=== PATIENT | male | born 1970 | race Caucasian/White ===

== ENCOUNTER 2022-04-05 09:04 | Outpatient (CLI) | payer OTHER ==
[2022-04-05 10:02] VITALS: BP 122/74
--- NOTE | 2022-04-05 10:02 | SLEEP CARE CONSULTATION ---
Information from patient questionnaire entered by Eduar Stover MA. I have reviewed and concur with the information entered by Eduar Stover MA. This document represents the service I personally performed and the decisions made by , Casie Salcido ARNP. History of Present Illness Service Date and Time: 04/05/2022 0904 Reason for Visit: New patient (ONSET 10/22/2001,) Chief Complaint: reports: Unrefreshed sleep, Snoring, Observed pauses in breathing, Fatigue, Frequent awakenings at night Date of Onset: YEARS Usual bedtime: VARIES FOR WORK 10 PM TO MIDNIGHT Time it takes to fall asleep: VARIES 30 MIN TO 1-2 HOURS Snores at night: Yes Observed to quit breathing while asleep: Yes Sleeps alone due to snoring: No Number of times waking at night: 1-2 Reasons for waking at night: reports: Snoring, Pain, Bathroom. denies: Choking, Gasping for air Toss, Turn, or Twitch while sleeping: No Recalls having dreams: Yes Usually gets out of bed at: 0500 Feels refreshed in the morning: No (sometimes) Morning headache: Yes (rarely) Sleepy or fatigued during the day: No Ever fallen asleep while driving: No Takes day naps: No Dreams during day naps: No Prior sleep studies: No Additional HPI information: I had the pleasure of seeing Anival Dixon today regarding the possibility of him having a sleep disorder. His current complaints are fatigue, frequent night awakenings, observed pauses in breathing, snoring and unrefreshed sleep. He states he is retiring from the [employer] after 35 years. He has never had a sleep study and is just getting it checked out. His has told him he snores with some pauses in breathing. There are snorers in his family. He states he has recently had difficulty falling asleep, taking up to 1 or more hours to go to sleep which he feels may be due to his worries about retiring process and change in lifestyle. 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 Patient is and lives in . Have you smoked in the past 12 months: No Alcohol use: Yes Alcohol amount and frequency: 4 X WEEKLY Caffeine use: Yes Caffeine amount and frequency: 2 X DAILY Family History Family history of sleep disordered breathing: Yes Family Hx Sleep Apnea: Father: Snoring, Sleep apnea - Untreated, Grandparent: Snoring, Sleep apnea - Untreated Allergies and Home Medications Known drug allergies: No Drug allergies reviewed: Yes (NKDA) Home medication list reviewed: Yes (no daily medications) Review of Systems Cardiovascular: denies: high blood pressure Gastrointestinal: reports: heartburn (occasional) Neurological: denies: head trauma Ear/Nose/Throat: reports: nasal congestion, sinus problems, wisdom teeth removed. denies: injury to nose, tonsillectomy Musculoskeletal: reports: joint pain, neck pain, back pain Immunologic: reports: sneezing (slight) Physical Exam Vital signs obtained and entered by: Saira STOVER CMA AAVT Blood Pressure: 122/74 (RESP 18, PULSE 83, RIGHT,) Heart Rate: 70 O2 Saturation: 98 (PAPER MASK) Height: 6 ft 4 in Weight: 250 lb Body Mass Index: 30.4 BMI Classification: Obese Neck circumference: 15.5 (INCHES) Mouth and throat: narrow oropharynx Soft palate: long Hard palate: arched Uvula: normal Uvula visualization: 25% Mallampati Class III Tongue: enlarged in size with teeth garcia on lateral edges Tonsils: small Neck: normal w/o lymphadenopathy or thyromegaly Heart: regular rate and rhythm Lungs: clear bilaterally Impression and Plan 1. Suspected Obstructive Sleep Apnea-Hypopnea Syndrome, as suggested by a history of loud and irregular snoring, observed cessation of breath while asleep, gasping or choking in sleep, frequent awakening during the night and unrefreshed sleep. Narrow oropharynx and obesity are common predisposing factors for obstructive sleep apnea-hypopnea syndrome. I recommend proceeding to polysomnography to confirm the diagnosis and to assess severity. If the patient has significant sleep disordered breathing, a manual CPAP titration study will also be performed to find the optimal treatment pressure. I informed the patient of what the sleep studies involve and after some discussion, obtained agreement to proceed. The pathophysiology of obstructive sleep apnea-hypopnea syndrome was discussed with the patient and health risks of cardiovascular and cerebr ovascular disease if not treated. Risks of drowsy driving discussed in detail and patient advised to avoid long distance driving and to shoe puller at the first sign of drowsiness. Patient agreed to plan. * Schedule polysomnography * Avoid long distance driving or driving when feeling sleepy. * Avoid alcohol, sedative and muscle relaxant around bedtime. * Attempt to lose weight. * Review instructions provided by trained office staff on how to prepare for the sleep study. * Return for follow-up after sleep study completed. Counseling Topics: Weight loss health impact Visit Type: In Office Time Spent with Patient (minutes): 37 Provider Statement: I spent 100% of the Face to Face Visit with the patient with greater than 50% spent counseling the patient and coordination of care.
== END 2022-04-05 09:05 | disposition home or self-care (01) ==
LOC: SC 09:04
PROVIDERS: ATTEND Nurse Practitioner Family
DX: R06.83 Snoring (principal); G47.8 Other sleep disorders; R06.81 Apnea, not elsewhere classified; R53.83 Other fatigue; E66.9 Obesity, unspecified; Z68.30 Body mass index [BMI] 30.0-30.9, adult
CPT/HCPCS: 99203; 99212

== ENCOUNTER 2022-05-03 09:28 | Outpatient (CLI) | payer OTHER | END 2022-05-03 09:29 | disposition home or self-care (01) | LOC: SC 09:28 | PROVIDERS: ATTEND Nurse Practitioner Family | DX: G47.33 Obstructive sleep apnea (adult) (pediatric) (principal); R09.02 Hypoxemia | CPT/HCPCS: 95806 ==

== ENCOUNTER 2023-08-27 13:30 | Outpatient (CLI) | payer OTHER ==
[2023-08-27 17:56] LABS: BASOPHILS % (AUTO) 0.2 %; HCT - HEMATOCRIT 36.7 % (42.0-52.0); HGB - HEMOGLOBIN 12.9 g/dL (14.0-18.0); LYMPHOCYTES # (AUTO) 1.1 10^3/uL (1.5-3.5); LYMPHOCYTES % (AUTO) 6.7 %; MEAN CORPUSCULAR HEMOGLOBIN 32.3 pg (27.0-31.0); MEAN CORPUSCULAR HGB CONC 35.1 g/dL (32.0-36.0); MEAN PLATELET VOLUME 10.5 fL (7.4-11.4); MONOCYTES # (AUTO) 1.1 10^3/uL (0.0-1.0); MONOCYTES % (AUTO) 6.5 %; NEUTROPHILS # (AUTO) 14.4 10^3/uL (1.5-6.6); NEUTROPHILS % (AUTO) 85.7 %; PLT - PLATELET COUNT 255 10^3/uL (130-450); RED BLOOD COUNT 3.99 10^6/uL (4.70-6.10); RED CELL DISTRIBUTION WIDTH 12.4 % (12.0-15.0); WHITE BLOOD COUNT 16.9 x10^3/uL (4.8-10.8)
[2023-08-27 18:06] LABS: ALBUMIN 3.9 g/dL (3.2-5.5); BILIRUBIN,TOTAL 1.2 mg/dL (0.2-1.0); CREATININE 0.9 mg/dL (0.6-1.3); POTASSIUM 3.6 mmol/L (3.5-4.5); TOTAL PROTEIN 7.7 g/dL (6.4-8.9)
[2023-08-27 18:08] LABS: CRP - C-REACTIVE PROTEIN 33.3 mg/dL (<0.5)
== END 2023-08-27 13:45 | disposition home or self-care (01) ==
LOC: LAB.N 13:30
PROVIDERS: ATTEND Family Medicine
DX: R50.9 Fever, unspecified (principal)
CPT/HCPCS: 36415; 80053; 85025; 85651; 86140; 87086

== ENCOUNTER 2023-08-27 15:12 | Outpatient (CLI) | payer OTHER ==
--- NOTE | 2023-08-27 20:29 | XRAY Report ---
PROCEDURE: Chest 2 View X-Ray INDICATIONS: FEVER OF UNKNOWN ORIGIN TECHNIQUE: 2 views of the chest were acquired. COMPARISON: None. FINDINGS: Surgical changes and devices: None. Lungs and pleura: No pleural effusions or pneumothorax. Lungs are clear. Mediastinum: Mediastinal contours appear normal. Heart size is normal. Bones and chest wall: No suspicious bony lesions. Overlying soft tissues appear unremarkable. IMPRESSION: No acute cardiopulmonary process. Reviewed by: Larry Esposito MD on 08/27/2023 8:28 PM [facility] Approved by: Larry Esposito MD on 08/27/2023 8:28 PM [facility] Station ID: [id number]
== END 2023-08-27 15:13 | disposition home or self-care (01) ==
LOC: DI 15:12
PROVIDERS: ATTEND Family Medicine
DX: R50.9 Fever, unspecified (principal)

== ENCOUNTER 2023-08-27 18:43 | Outpatient (CLI) | payer OTHER | END 2023-08-27 18:44 | disposition critical access hospital (66) | LOC: EMS 18:43 | DX: R50.9 Fever, unspecified (principal); R00.0 Tachycardia, unspecified; R06.4 Hyperventilation; R45.89 Other symptoms and signs involving emotional state | CPT/HCPCS: A0425; A0429 ==

== ENCOUNTER 2023-08-27 19:00 | Emergency (ER) | payer OTHER ==
--- NOTE | 2023-08-27 19:37 | ED Physician Documentation ---
PD HPI FEVER - Stated complaint Stated Complaint: FEVER - Chief complaint Chief Complaint: Fever - History obtained from History obtained from: Patient - Additional information Additional information: HPI from patient. Although probably unrelated, the patient notes that on July 25, he received the COVID/flu vaccinations. Patient complains of episodic fevers over the past 3 weeks. Reports that beg inning july, the patient says he was having sinusitis-type symptoms, although he does not think he had a fever at that time. Those symptoms have long since been cleared. Approximately 3 weeks ago, after the symptoms of the sinusitis are cleared, the patient developed shakes, chills associated with high spiking fevers into the Tmax 103 range. He says that he would respond to Tylenol, ibuprofen with effervescence, only to have chills and recurrence of fever several hours later. He says over the past 3 weeks, he has had 2 several days at a time of being afebrile, but again has recurrent episodic fevers including the last 2 to 3 days. He was evaluated earlier today in the outpatient setting by his primary care provider, had negative results on COVID and influenza swabs. Had outpatient blood tests, notable for leukocytosis (16.9), CRP 33.3, ESR 69. He was advised to come to the emergency department because of the ongoing and high-spiking fevers. Patient denies any pain. He de nies chest pain, abdominal pain, bladder pain. He denies UTI symptoms such as urinary frequency, dysuria. He denies shortness of breath. He denies cough, although the says she has noticed an occasional, dry cough. Denies sore throat, denies headache. Review of Systems Constitutional: reports: Fever, Chills, Myalgias, Sweats Cardiac: reports: Reviewed and negative Respiratory: reports: Reviewed and negative GI: reports: Reviewed and negative : denies: Dysuria, Frequency Skin: denies: Rash Musculoskeletal: reports: Other (no specific area of pain, but has diffuse myalgias and arthralgias in proportion to fever) Neurologic: denies: Generalized weakness, Focal weakness, Numbness, Confused, Altered mental status, Headache PD PAST MEDICAL HISTORY - Past Medical History Past Medical History: No - Past Surgical History Past Surgical History: Yes /RESIDENTIAL DIRECTOR: Other (vasectomy) - Present Medications Home Medications: Ambulatory Orders Medication Instructions Recorded Confirmed No Known Home Medications 08/27/23 08/27/23 - Allergies Allergies/Adverse Reactions: Allergies Allergy/AdvReac Type Severity Reaction Status Date / Time No Known Drug Allergies Allergy Verified 08/27/23 19:24 - Social History Does the pt smoke?: No Smoking Status: Never smoker PD ED PE NORMAL - Vitals Vital signs reviewed: Yes - General General: Alert and oriented X 3, No acute distress, Well developed/nourished, Other (patient's hair and the bed are soaked with perspiration) - HEENT HEENT: Moist mucous membranes - Neck Neck: Supple, no meningeal sign - Cardiac Cardiac: No murmur - Respiratory Respiratory: No respiratory distress, Clear bilaterally - Abdomen Abdomen: Normal bowel sounds, Soft, Non tender, Non distended - Back Back: No CVA TTP, No spinal TTP - Derm Derm: Normal color, Other (profuse diaphoresis) - Extremities Extremities: No edema - Neuro Neuro: Alert and oriented X 3, siderographer 2-12 intact, No motor deficit, No sensory deficit, Normal speech Eye Opening: Spontaneous Motor: Obeys Commands Verbal: Oriented GCS Score: 15 PD ED PE EXPANDED - Cardiac Cardiac: Tachy, Regular Rhythm Results - Vitals Vitals: Vital Signs - 24 hr 08/28/23 08/28/23 08/28/23 08:37 09:00 09:30 Temperature Heart Rate 92 92 92 Respiratory 12 12 13 Rate Blood Pressure 104/72 108/80 107/83 H O2 Saturation 100 100 100 08/28/23 08/28/23 08/28/23 10:00 10:30 11:00 Temperature 36.9 C Heart Rate 93 93 96 Respiratory 11 L 17 10 L Rate Blood Pressure 106/74 102/74 119/72 O2 Saturation 100 100 100 08/28/23 08/28/23 08/28/23 12:59 14:01 14:05 Temperature 38.5 C H 37.4 C 37.4 C Heart Rate 104 H 106 H Respiratory 12 14 Rate Blood Pressure 126/73 135/80 H O2 Saturation 99 99 08/28/23 08/28/23 08/28/23 17:04 19:15 20:00 Temperature 36.8 C Heart Rate 86 90 88 Respiratory 18 19 18 Rate Blood Pressure 125/82 H 128/91 H 124/79 O2 Saturation 97 100 96 08/28/23 08/28/2323 20:30 21:00 21:30 Temperature Heart Rate 87 92 86 Respiratory 18 14 15 Rate Blood Pressure 119/81 H 110/79 113/81 H O2 Saturation 95 97 96 08/28/23 08/28/23 08/28/23 22:00 22:30 23:00 Temperature 36.8 C Heart Rate 91 89 86 Respiratory 15 15 21 Rate Blood Pressure 90/57 L 108/79 111/87 H O2 Saturation 97 98 95 08/28/23 08/29/23 08/29/23 23:30 00:00 00:30 Temperature Heart Rate 94 94 94 Respiratory 11 L 20 13 Rate Blood Pressure 126/90 H 114/89 H 122/93 H O2 Saturation 98 96 97 08/29/23 08/29/23 08/29/23 01:00 01:30 02:00 Temperature 37.5 C 37.5 C Heart Rate 96 103 H 100 Respiratory 10 L 12 12 Rate Blood Pressure 124/85 H 119/97 H 123/88 H O2 Saturation 97 96 96 08/29/23 08/29/23 08/29/23 02:14 02:30 03:00 Temperature 37.5 C Heart Rate 145 H 140 H Respiratory 30 H Rate Blood Pressure 122/104 H O2 Saturation 95 94 08/29/23 08/29/23 08/29/23 03:30 04:00 04:30 Temperature 37.4 C Heart Rate 122 H 116 H 106 H Respiratory 9 L 15 16 Rate Blood Pressure 109/69 104/59 L 106/59 L O2 Saturation 96 96 96 08/29/23 08/29/23 08/29/23 05:00 05:30 06:00 Temperature Heart Rate 104 H 99 93 Respiratory 14 14 13 Rate Blood Pressure 101/62 99/63 90/61 O2 Saturation 96 93 98 08/29/23 08/29/23 06:30 07:00 Temperature 36.5 C Heart Rate 89 14 L Respiratory 15 14 Rate Blood Pressure 101/60 104/72 O2 Saturation 95 98 Oxygen O2 Source Room air - Labs Labs: Microbiology 08/27/23 20:30 Blood Culture - Preliminary Blood - Right Arm NO GROWTH AFTER 1 DAY 08/27/23 19:58 Blood Culture - Preliminary Blood NO GROWTH AFTER 1 DAY 08/27/23 21:07 Urine Culture - Final Urine,Clean Catch No growth Laboratory Tests 11/04/1308/27/23 08/27/23 18:59 19:59 19:59 WBC RBC Hgb Hct MCV MCH MCHC RDW Plt Count MPV Neut # (Auto) Lymph # (Auto) [place] # (Auto) Eos # (Auto) Baso # (Auto) Absolute Nucleated RBC Total Counted Band Neuts % (Manual) Abnorm Lymph % (Manual) Nucleated RBC % Neutrophils # (Manual) Lymphocytes # (Manual) Monocytes # (Manual) Eosinophils # (Manual) Basophils # (Manual) Differential Comment Platelet Estimate Platelet Morphology RBC Morph Micro Appear Sodium 133 L Potassium 3.2 L Chloride 99 L Carbon Dioxide 22 Anion Gap 12.0 BUN 17 Creatinine 1.4 H Estimated GFR (MDRD) 53 L Glucose 138 H Lactic Acid 3.6 H* Calcium 8.8 Total Bilirubin 1.3 H AST 24 ALT 44 Alkaline Phosphatase 80 Total Protein 7.2 Albumin 3.7 Globulin 3.5 Albumin/Globulin Ratio 1.1 Urine Color DARK YELLOW Urine Clarity CLEAR Urine pH 5.5 Ur Specific [place] >=1.030 H Urine Protein 100 H Urine Glucose (UA) NEGATIVE Urine Ketones NEGATIVE Urine Occult Blood TRACE-LYSE Urine Nitrite NEGATIVE Urine Bilirubin NEGATIVE Urine Urobilinogen 1 (NORMAL) Ur Leukocyte Esterase NEGATIVE Urine RBC 0-5 Urine WBC 0-3 Ur Squamous Epith Cells NONE SEEN Urine Bacteria None Seen Urine Culture Comments NOT INDICATED Nasal Adenovirus (PCR) Nasal B. parapertussis DNA (PCR) Nasal Coronavir 229E PCR Nasal Coronavir HKU1 PCR Nasal Coronavir NL63 PCR Nasal Coronavir OC43 PCR Nasal Enterovir/Rhinovir PCR Nasal Influenza B PCR Nasal Influenza A PCR Nasal Parainfluen 1 PCR Nasal Parainfluen 2 PCR Nasal Parainfluen 3 PCR Nasal Parainfluen 4 PCR Nasal RSV (PCR) Nasal B.pertussis DNA PCR Nasal C.pneumoniae (PCR) Niko Human Metapneumo PCR Nasal M.pneumoniae (PCR) Nasal SARS-CoV-2 (PCR) 08/27/23 08/27/23 08/27/23 20:00 20:30 23:53 WBC 8.2 RBC 3.74 L Hgb 12.2 L Hct 35.6 L MCV 95.2 H MCH 32.6 H MCHC 34.3 RDW 12.5 Plt Count 182 MPV 9.8 Neut # (Auto) Not Reportable Lymph # (Auto) Not Reportable [place] # (Auto) Not Reportable Eos # (Auto) Not Reportable Baso # (Auto) Not Reportable Absolute Nucleated RBC Not Reportable Total Counted 100 Band Neuts % (Manual) 8 Abnorm Lymph % (Manual) 0 Nucleated RBC % Not Reportable Neutrophils # (Manual) 7.5 H Lymphocytes # (Manual) 0.6 L Monocytes # (Manual) 0.1 Eosinophils # (Manual) 0.0 Basophils # (Manual) 0.0 Differential Comment MANUAL DIFFERENTIAL Platelet Estimate NORMAL (130-450,000) Platelet Morphology NORMAL APPEARANCE RBC Morph Micro Appear NORMAL APPEARANCE Sodium Potassium Chloride Carbon Dioxide Anion Gap BUN Creatinine Estimated GFR (MDRD) Glucose Lactic Acid 1.5 Calcium Total Bilirubin AST ALT Alkaline Phosphatase Total Protein Albumin Globulin Albumin/Globulin Ratio Urine Color Urine Clarity Urine pH Ur Specific [place] Urine Protein Urine Glucose (UA) Urine Ketones Urine Occult Blood Urine Nitrite Urine Bilirubin Urine Urobilinogen Ur Leukocyte Esterase Urine RBC Urine WBC Ur Squamous Epith Cells Urine Bacteria Urine Culture Comments Nasal Adenovirus (PCR) NOT DETECTED Nasal B. parapertussis DNA (PCR) NOT DETECTED Nasal Coronavir 229E PCR NOT DETECTED Nasal Coronavir HKU1 PCR NOT DETECTED Nasal Coronavir NL63 PCR NOT DETECTED Nasal Coronavir OC43 PCR NOT DETECTED Nasal Enterovir/Rhinovir PCR NOT DETECTED Nasal Influenza B PCR NOT DETECTED Nasal Influenza A PCR NOT DETECTED Nasal Parainfluen 1 PCR NOT DETECTED Nasal Parainfluen 2 PCR NOT DETECTED Nasal Parainfluen 3 PCR NOT DETECTED Nasal Parainfluen 4 PCR NOT DETECTED Nasal RSV (PCR) NOT DETECTED Nasal B.pertussis DNA PCR NOT DETECTED Nasal C.pneumoniae (PCR) NOT DETECTED Niko Human Metapneumo PCR NOT DETECTED Nasal M.pneumoniae (PCR) NOT DETECTED Nasal SARS-CoV-2 (PCR) NOT DETECTED 08/29/23 08:25 WBC 13.8 H RBC 3.32 L Hgb 10.8 L Hct 31.0 L MCV 93.4 MCH 32.5 H MCHC 34.8 RDW 12.5 Plt Count 168 MPV 10.0 Neut # (Auto) Lymph # (Auto) [place] # (Auto) Eos # (Auto) Baso # (Auto) Absolute Nucleated RBC Total Counted Band Neuts % (Manual) Abnorm Lymph % (Manual) Nucleated RBC % Neutrophils # (Manual) Lymphocytes # (Manual) Monocytes # (Manual) Eosinophils # (Manual) Basophils # (Manual) Differential Comment Platelet Estimate Platelet Morphology RBC Morph Micro Appear Sodium Potassium Chloride Carbon Dioxide Anion Gap BUN Creatinine Estimated GFR (MDRD) Glucose Lactic Acid Calcium Total Bilirubin AST ALT Alkaline Phosphatase Total Protein Albumin Globulin Albumin/Globulin Ratio Urine Color Urine Clarity Urine pH Ur Specific [place] Urine Protein Urine Glucose (UA) Urine Ketones Urine Occult Blood Urine Nitrite Urine Bilirubin Urine Urobilinogen Ur Leukocyte Esterase Urine RBC Urine WBC Ur Squamous Epith Cells Urine Bacteria Urine Culture Comments Nasal Adenovirus (PCR) Nasal B. parapertussis DNA (PCR) Nasal Coronavir 229E PCR Nasal Coronavir HKU1 PCR Nasal Coronavir NL63 PCR Nasal Coronavir OC43 PCR Nasal Enterovir/Rhinovir PCR Nasal Influenza B PCR Nasal Influenza A PCR Nasal Parainfluen 1 PCR Nasal Parainfluen 2 PCR Nasal Parainfluen 3 PCR Nasal Parainfluen 4 PCR Nasal RSV (PCR) Nasal B.pertussis DNA PCR Nasal C.pneumoniae (PCR) Niko Human Metapneumo PCR Nasal M.pneumoniae (PCR) Nasal SARS-CoV-2 (PCR) - Rads (name of study) CT chest Relevant Findings:: Prelim report reviewed, See rad report CT A/P Relevant Findings:: Prelim report reviewed, See rad report PD Medical Decision Making - ED course Complexity details: reviewed results, re-evaluated patient, considered differential, d/w patient ED course: At this point, by some definitions, the patient is having fever of unknown origin. Although he is profusely diaphoretic on my exam, he is surprisingly in no apparent distress. He denies having any specific area of pain; he just is commenting that he "hurts everywhere" when he has high fevers. There are no elements of the HPI, ROS, or test results thus far to suggest a source of infection. His white blood cell count was 16 earlier today, but is now 8.2. His creatinine is 1.4, up from 0.9 only a few hours ago. CRP earlier this afternoon 33.3, sed rate from earlier this afternoon 69. The most concerning finding on t he blood test is a lactate of 3.6. Chest x-ray was performed earlier today, no remarkable findings on that study. In order to continue to work-up FUO, I ordered a CT of the chest, abdomen, and pelvis with intravenous contrast. Patient's blood pressures were in the normotensive range for the early part of his ED stay, but they did trend downwards to as low as 88 systolic. I had already triggered the severe sepsis pathway, included in this approach is a 30 cc/kg bolus of normal saline. The CT of the abdomen/pelvis demonstrates a lesion in the liver suspicious for abscess measuring 5.8 x 3.7 cm. Patient would benefit from transfer to a facility with IR capability. Multiple hospitals contacted and INTERMEDI[facility] then activated. I eventually heard from [facility] and I discussed this case with the hospitalist (Dr. Ale Rossi); she had spoken with the IR and IR had reviewed the images and indicated this would be an appropriate transfer to their facility for IR. Dr. Rossi says she will accept patient once they have a bed available. At the end of my shift, bed availability is still pending and thus the care of the patient is turned over to the oncoming ED physician (Dr. La). - Sepsis Event Sepsis Onset Date: 08/27/23 Sepsis Onset Time: 20:31 Current Stage of Sepsis: Severe sepsis Initial Hypotension: SBP less than 90 mmHg Persistent Hypotension: SBP less than 90 mmHg Possible source of Sepsis: Unknown Mental/Cognitive Status: Alert/Oriented X3 Capillary refill: Less than 2 seconds Peripheral Pulse Strength: 3+ Normal Peripheral Pulse Location: Radial Bedside ultrasound performed: No Departure - Departure Disposition: 02 Transfer Acute Care Hosp Clinical Impression: Liver abscess Sepsis Qualifiers: Sepsis type: sepsis due to unspecified organism Sepsis acute organ dysfunction status: without acute organ dysfunction Qualified Code(s): A41.9 - Sepsis, unspecified organism Condition: Fair Forms: PCP List
[2023-08-27 20:05] LABS: BASOPHILS % (AUTO) 0.2 %; EOSINOPHILS % (AUTO) 0.1 %; HCT - HEMATOCRIT 35.6 % (42.0-52.0); HGB - HEMOGLOBIN 12.2 g/dL (14.0-18.0); LYMPHOCYTES % (AUTO) 5.6 %; MEAN CORPUSCULAR HEMOGLOBIN 32.6 pg (27.0-31.0); MEAN CORPUSCULAR HGB CONC 34.3 g/dL (32.0-36.0); MEAN CORPUSCULAR VOLUME 95.2 fL (80.0-94.0); MEAN PLATELET VOLUME 9.8 fL (7.4-11.4); MONOCYTES % (AUTO) 0.5 %; NEUTROPHILS % (AUTO) 91.9 %; PLT - PLATELET COUNT 182 10^3/uL (130-450); RED BLOOD COUNT 3.74 10^6/uL (4.70-6.10); RED CELL DISTRIBUTION WIDTH 12.5 % (12.0-15.0); WHITE BLOOD COUNT 8.2 x10^3/uL (4.8-10.8)
[2023-08-27 20:08] LABS: ABNORMAL LYMPHS % (MANUAL) 0 %
[2023-08-27 20:14] LABS: BILIRUBIN,URINE NEGATIVE (NEGATIVE); GLUCOSE, URINE (UA) NEGATIVE (NEGATIVE); KETONES,URINE (UA) NEGATIVE (NEGATIVE); LEUKOCYTE ESTERASE, URINE NEGATIVE (NEGATIVE); NITRITE,URINE NEGATIVE (NEGATIVE); OCCULT BLOOD,URINE TRACE-LYSE (NEGATIVE); PH,URINE 5.5 PH (5.0-7.5); PROTEIN,URINE 100 mg/dL (NEGATIVE); UROBILINOGEN,URINE 1 (NORMAL) E.U./dL (NORMAL)
[2023-08-27 20:15] LABS: CLARITY,URINE CLEAR (CLEAR)
[2023-08-27 20:22] LABS: ALBUMIN 3.7 g/dL (3.2-5.5); ALBUMIN/GLOBULIN RATIO 1.1 (1.0-2.2); BILIRUBIN,TOTAL 1.3 mg/dL (0.2-1.0); CALCIUM 8.8 mg/dL (8.5-10.3); CREATININE 1.4 mg/dL (0.6-1.3); POTASSIUM 3.2 mmol/L (3.5-4.5); TOTAL PROTEIN 7.2 g/dL (6.4-8.9)
[2023-08-27 20:23] LABS: BAND NEUTROPHILS % (MANUAL) 8 %; DIFFERENTIAL COMMENT MANUAL DIFFERENTIAL; LYMPHOCYTES # (MANUAL) 0.6 10^3/uL (1.5-3.5); LYMPHOCYTES % (MANUAL) 7 %; MONOCYTES # (MANUAL) 0.1 10^3/uL (0.0-1.0); NEUTROPHILS # (MANUAL) 7.5 10^3/uL (1.5-6.6); PLATELET ESTIMATE, MANUAL NORMAL (130-450,000) (NORMAL); PLATELET MORPHOLOGY NORMAL APPEARANCE (NORMAL); RBC MORPHOLOGY (MULTIPLE) NORMAL APPEARANCE (NORMAL)
[2023-08-27 20:24] LABS: LACTIC ACID, VENOUS 3.6 mmol/L (0.5-2.2)
[2023-08-27] MEDS ORDERED: SODIUM CHLORIDE 0.9% 1,000 ML IV STA (20:24)
[2023-08-27 20:29] LABS: BACTERIA,URINE None Seen /HPF (None Seen); RBC,URINE 0-5 /HPF (0-5); SQUAMOUS EPITHELIAL CELL,UR NONE SEEN (<= Few); WBC,URINE 0-3 /HPF (0-3)
[2023-08-27] MEDS ORDERED: VANCOMYCIN INJ 2.25 GM in SODIUM CHLORIDE 0.9% 500 ML IV STA (20:31)
[2023-08-27] MEDS ORDERED: CEFEPIME 2 GM in SODIUM CHLORIDE 0.9% MINIBAG 100 ML IV STA (20:31)
[2023-08-27] MEDS ORDERED: metroNIDAZOLE 500 MG/100 ML 500 MG/100 ML BAG IV STA (20:31)
[2023-08-27 21:36] LABS: B. PARAPERTUSSIS- RESP PCR PAN NOT DETECTED; B. PERTUSSIS- RESP PCR PANEL NOT DETECTED; C. PNEUMONIAE- RESP PCR PANEL NOT DETECTED; CORONAVIRUS 229E-RESP PCR NOT DETECTED; CORONAVIRUS HKU1-RESP PCR NOT DETECTED; CORONAVIRUS NL63-RESP PCR NOT DETECTED; CORONAVIRUS OC43-RESP PCR NOT DETECTED; HUMAN METAPNEUMOVIRUS NOT DETECTED; INFLUENZA A- RESP PCR PANEL NOT DETECTED; INFLUENZA B - RESP PCR PANEL NOT DETECTED; M. PNEUMONIAE- RESP PCR PANEL NOT DETECTED; PARAINFLUENZA VIRUS 1 NOT DETECTED; PARAINFLUENZA VIRUS 2 NOT DETECTED; PARAINFLUENZA VIRUS 3 NOT DETECTED; PARAINFLUENZA VIRUS 4 NOT DETECTED; RHINOVIRUS/ENTEROVIRUS NOT DETECTED; RSV- RESP PCR PANEL NOT DETECTED; SARS-CoV-2 -RESP PCR PANEL NOT DETECTED
[2023-08-27] MEDS ORDERED: VANCOMYCIN 1 GM VIAL ONE (21:53)
[2023-08-27] MEDS ORDERED: SODIUM CHLORIDE 0.9% 2,000 ML IV STA (22:02)
[2023-08-27] MEDS: iohexoL-300 100 ML VIAL IVP ONE (23:17)
--- NOTE | 2023-08-27 23:55 | CT Report ---
PROCEDURE: CHEST W INDICATIONS: FUO CONTRAST: Omni 300 100ml TECHNIQUE: After the administration of intravenous contrast, 1 mm axial images were acquired from the pulmonary apices through the posterior costophrenic angles. Axial 5 mm soft tissue kernel reconstructions were performed as well as 8 mm axial MIP and coronal and sagittal 5 mm reformations. For radiation dose reduction, the following was used: automated exposure control, adjustment of mA and/or kV according to patient size. COMPARISON: None. FINDINGS: Image quality: Excellent. Lungs and pleura: No consolidation. No pleural effusions. No pneumothorax. No suspicious pulmonary n odules which require follow up. Mediastinum: Heart size is normal. No pericardial effusion. No large vessel abnormality. No mediastin al adenopathy by size criteria. Small hiatal hernia. Chest wall and lower neck: Thyroid is unremarkable. No axillary or supraclavicular adenopathy by size . Bones: No aggressive osseous abnormality. 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 Upper Abdomen: Moderate hepatic steatosis is seen. IMPRESSION: 1. Bilateral lungs are clear. 2. No mediastinal or hilar lymphadenopathy. 3. Small hiatal hernia. Reviewed by: Larry Hagan MD on 08/27/2023 11:54 PM PST Approved by: Larry Hagan MD on 08/27/2023 11:54 PM PST Station ID: [id number]
--- NOTE | 2023-08-28 | CT Report ---
PROCEDURE: ABDOMEN/PELVIS W INDICATIONS: FUO CONTRAST: Omni 300 100ml TECHNIQUE: After the administration of IV contrast, 5 mm thick sections acquired from the diaphragms to the symp hysis. 5 mm thick coronal and sagittal reformats were acquired. For radiation dose reduction, the f ollowing was used: automated exposure control, adjustment of mA and/or kV according to patient size. COMPARISON: None FINDINGS: Image quality: Excellent. Lung bases and heart: Unremarkable. Liver: No solid mass. Moderate hepatic steatosis is seen. Heterogeneously hypodense area involving in ferior aspect of right hepatic lobe adjacent to gallbladder fossa measures up to 5.8 x 3.7 cm in size series 2 image 38. Gallbladder and biliary tree: Unremarkable. Spleen: No splenomegaly. Pancreas: No pancreatic ductal dilation. Adrenals: No adrenal nodule. Kidneys and ureters: No hydronephrosis. No renal cystic lesion which requires follow up. No solid mas s. Tiny nonobstructing 1 mm right renal calculus is seen. Bowel and peritoneum: No bowel distension. No pathologic free fluid. Sigmoid diverticulosis is seen w ithout abnormal colonic wall thickening or pericolonic fat stranding. No abscess collection. No perit garrison free air. Lymph nodes: No central or retroperitoneal adenopathy. Vessels: No infrarenal aortic aneurysm. PELVIS Reproductive organs: Unremarkable. Bladder: No abnormal wall thickening, accounting for underdistension. Pelvic lymph nodes: No pelvic adenopathy by size criteria. Bones: No aggressive osseous abnormality. Chronic appearing anterior wedge compression deformity at L 1 level is seen with up to 30% loss of L1 vertebral body height anteriorly. Degenerative endplate belle nges throughout lumbar spine is seen. Other: No significant ventral hernia. Small bilateral inguinal hernias are seen containing fat only. IMPRESSION: 1. Ill-defined heterogeneously hypodense area involving inferior aspect of right hepatic lobe adjacen t to gallbladder fossa and measures up to 5.8 x 3.7 cm in size. Finding may represent hepatic abscess given patient's history of fever of unknown origin. Clinical correlation and follow-up is recommende d. Moderate hepatic steatosis. 2. No bowel obstruction or abnormal bowel wall thickening. Sigmoid diverticulosis without evidence of acute diverticulitis. No free fluid of free air. 3. Chronic appearing anterior wedge compression deformity at L1 level as above. Reviewed by: Larry Esposito MD on 08/27/2023 11:59 PM PST Approved by: Larry Esposito MD on 08/27/2023 11:59 PM PST Station ID: [id number]
[2023-08-28] MEDS ORDERED: metroNIDAZOLE 500 MG/100 ML 500 MG/100 ML BAG IV ONE (11:33)
[2023-08-28] MEDS ORDERED: CEFEPIME 2 GM in SODIUM CHLORIDE 0.9% MINIBAG 100 ML IV STA (11:33)
[2023-08-28] MEDS ORDERED: ACETAMINOPHEN 325 MG TABLET PO STA (13:02)
[2023-08-28] MEDS ORDERED: IBUPROFEN 600 MG TABLET PO STA (13:02)
[2023-08-28] MEDS ORDERED: MAG HYDROX/AL HYDROX/SIMETH 30 ML UDC PO STA (13:26)
[2023-08-28] MEDS: VANCOMYCIN INJ 1 GM, VANCOMYCIN INJ 500 MG in SODIUM CHLORIDE 0.9% 500 ML IV SCH (13:33)
--- NOTE | 2023-08-28 19:42 | ED Physician Documentation ---
ED Addendum - Addendum Addendum: 08/28/23 19:40 The patient was signed out to me at change of shift by Dr. Ramírez, continuing to pend transfer to [facility] for a liver abscess. The patient had been given IV antibiotics overnight and I did order repeat doses today. The patient did spike a fever during my shift and was given Tylenol and ibuprofen for this. At this point in time, we have been in communication with , who continues to state that they are prioritizing transfer to their facility but at this point in time they still do not have beds. We will continue to treat the patient with antibiotics and work to get this patient transferred to soon as possible. We have considered the possibility of transferring elsewhere but at this point in time, we are being told by the [facility] that every hospital in [place] is full and it is a minimum of a 3 to 4-day wait for most transfers. The patient is signed out to Dr. Ramírez at change of shift, continuing to pend final disposition.
[2023-08-28] MEDS: CEFEPIME 2 GM in SODIUM CHLORIDE 0.9% MINIBAG 100 ML IV SCH (20:39)
[2023-08-28] MEDS: metroNIDAZOLE 500 MG/100 ML 500 MG/100 ML BAG IV SCH (20:45)
[2023-08-29] MEDS: VANCOMYCIN INJ 1 GM, VANCOMYCIN INJ 500 MG in SODIUM CHLORIDE 0.9% 500 ML IV SCH ×2 (01:19→14:23)
[2023-08-29] MEDS ORDERED: IBUPROFEN 600 MG TABLET PO STA (01:51)
[2023-08-29] MEDS ORDERED: ACETAMINOPHEN 325 MG TABLET PO STA ×2 (02:56→21:08)
[2023-08-29] MEDS: metroNIDAZOLE 500 MG/100 ML 500 MG/100 ML BAG IV SCH ×3 (04:56→21:26)
[2023-08-29] MEDS: CEFEPIME 2 GM in SODIUM CHLORIDE 0.9% MINIBAG 100 ML IV SCH ×3 (04:56→21:22)
--- NOTE | 2023-08-29 08:15 | ED Physician Documentation ---
ED Addendum - Addendum Addendum: 08/29/23 Care assumed at shift change. Patient is boarding in the emergency department awaiting transfer to facility with IR capabilities for evaluation of hepatic abscess in the setting of fever. Patient remains on triple antibiotics. Repeat labs ordered this morning. Vital signs have otherwise been stable this morning. Labs today with mild leukocytosis and hypokalemia (replacement ordered). VSS. Remains boarding in the Emergency DEpartment at shift change awaiting transfer. SIgned out out to oncoming provider.
[2023-08-29 08:29] LABS: BASOPHILS # (AUTO) 0.1 10^3/uL (0.0-0.1); BASOPHILS % (AUTO) 0.6 %; EOSINOPHILS # (AUTO) 0.1 10^3/uL (0.0-0.7); EOSINOPHILS % (AUTO) 0.4 %; HGB - HEMOGLOBIN 10.8 g/dL (14.0-18.0); LYMPHOCYTES # (AUTO) 0.8 10^3/uL (1.5-3.5); LYMPHOCYTES % (AUTO) 5.7 %; MEAN CORPUSCULAR HEMOGLOBIN 32.5 pg (27.0-31.0); MEAN CORPUSCULAR HGB CONC 34.8 g/dL (32.0-36.0); MEAN CORPUSCULAR VOLUME 93.4 fL (80.0-94.0); MONOCYTES # (AUTO) 0.8 10^3/uL (0.0-1.0); MONOCYTES % (AUTO) 5.5 %; NEUTROPHILS % (AUTO) 87.4 %; PLT - PLATELET COUNT 168 10^3/uL (130-450); RED BLOOD COUNT 3.32 10^6/uL (4.70-6.10); RED CELL DISTRIBUTION WIDTH 12.5 % (12.0-15.0); WHITE BLOOD COUNT 13.8 x10^3/uL (4.8-10.8)
[2023-08-29 08:47] LABS: ALBUMIN/GLOBULIN RATIO 0.9 (1.0-2.2); BILIRUBIN,TOTAL 0.8 mg/dL (0.2-1.0); CREATININE 0.9 mg/dL (0.6-1.3); POTASSIUM 2.9 mmol/L (3.5-4.5); TOTAL PROTEIN 6.2 g/dL (6.4-8.9)
[2023-08-29] MEDS ORDERED: POTASSIUM BICARB 25 MEQ TABLET PO ONE (08:59)
[2023-08-29 09:12] LABS: PLATELET ESTIMATE, MANUAL NORMAL (130-450,000) (NORMAL); PLATELET MORPHOLOGY NORMAL APPEARANCE (NORMAL); RBC MORPHOLOGY (MULTIPLE) NORMAL APPEARANCE (NORMAL); WBC MORPHOLOGY (MULTIPLE) NORMAL APPEARANCE (NORMAL)
[2023-08-29 09:13] LABS: DIFFERENTIAL COMMENT MANUAL=AUTO DIFF
[2023-08-29] MEDS: POTASSIUM CHLOR 10 MEQ/100 ML 10 MEQ/100 ML BAG IV SCH ×2 (09:49→11:31)
[2023-08-29 13:11] LABS: VANCOMYCIN,TROUGH 10.9 ug/mL
--- NOTE | 2023-08-29 23:20 | ED Physician Documentation ---
ED Addendum - Addendum Addendum: 08/29/23 23:20 Patient doing well, he was feeling feverish so Tylenol was ordered. Otherwise he is comfortable. Patient still awaiting transfer. Signed out to the oncoming emergency department physician.
[2023-08-30] MEDS: VANCOMYCIN INJ 1 GM, VANCOMYCIN INJ 500 MG in SODIUM CHLORIDE 0.9% 500 ML IV SCH ×2 (01:04→13:27)
[2023-08-30] MEDS ORDERED: VANCOMYCIN 1 GM VIAL ONE (01:12)
[2023-08-30] MEDS: metroNIDAZOLE 500 MG/100 ML 500 MG/100 ML BAG IV SCH ×3 (03:54→20:29)
[2023-08-30] MEDS: CEFEPIME 2 GM in SODIUM CHLORIDE 0.9% MINIBAG 100 ML IV SCH ×3 (03:54→19:47)
[2023-08-30] MEDS ORDERED: ACETAMINOPHEN 325 MG TABLET PO STA ×2 (04:02→10:02)
[2023-08-30] MEDS ORDERED: MAGNESIUM SULFATE 2 GRAM 2 GM/50 ML BAG IV ONE (05:25)
--- NOTE | 2023-08-30 05:27 | ED Physician Documentation ---
ED Addendum - Addendum Addendum: 08/30/23 05:26 Patient endorsed to me by Dr. Booker at 11 PM shift change. He is awaiting [facility] transfer for liver abscess, currently on antibiotics. Headache and body aches treated with 650 oral tylenol overnight. Appears to be hypokalemic persistently on lab work. Additional K rider and mag rider ordered. Plan to endorse patient to incoming daytime EDMD at 7 AM shift change. 08/30/23 05:27
[2023-08-30] MEDS: POTASSIUM CHLOR 10 MEQ/100 ML 10 MEQ/100 ML BAG IV SCH ×4 (06:59→11:01)
--- NOTE | 2023-08-30 12:08 | ED Physician Documentation ---
ED Addendum - Addendum Addendum: 08/30/23 12:05 I received a call from the hospitalist/transfer coordinating physician from . Provider's name is Cassidy Mccray. The provider states that they did talk with the interventional erp specialist today who reviewed the imaging from the previous day. There had been evaluation by interventional radiology previously that the area was amenable to drainage. The IR radiologist today stated that it looked more like a phlegmon and not a defined abscess and was not amenable to drainage. As such the transfer physician needed to declined transfer as there was not a higher level of need per se. Recommendation was continued antibiotics. Suggestion of repeating imaging to see if its changed over the interval time into either improved in which case continued antibiotics alone, or if its more coalesced in which case to send the images to them and they would reevaluate it. The patient was updated on this. We will repeat CT chest and abdomen. He continues comfortable at this time and continues on antibiotics.
--- NOTE | 2023-08-30 12:31 | CT Report ---
PROCEDURE: CHEST W INDICATIONS: eval hepatic lesion; ? lung issues CONTRAST: 100ml omni 300 TECHNIQUE: After the administration of intravenous contrast, 1 mm axial images were acquired from the pulmonary apices through the posterior costophrenic angles. Axial 5 mm soft tissue kernel reconstructions were performed as well as 8 mm axial MIP and coronal and sagittal 5 mm reformations. For radiation dose reduction, the following was used: automated exposure control, adjustment of mA and/or kV according to patient size. COMPARISON: 08/27/2023 FINDINGS: Image quality: Good Lungs and pleura:No dense consolidation or pleural effusions. No pneumothorax. No suspicious pulmonar y nodules. Mediastinum, heart, and esophagus: Small hiatal hernia. No pathologic lymph nodes by size criteria. S mall calcified mediastinal lymph nodes are seen, likely prior granulomatous process. Chest wall and thyroid: Unremarkable Upper abdomen: Separately dictated Bones: No acute or suspicious osseous finding. Again seen is height loss at the L1 vertebral body. IMPRESSION: No acute findings in the chest. Abdominal findings are separately dictated. Reviewed by: Cr Leyva MD on 08/30/2023 12:30 PM PST Approved by: Cr Leyva MD on 08/30/2023 12:30 PM PST Station ID: [id number]
--- NOTE | 2023-08-30 13:05 | CT Report ---
PROCEDURE: ABDOMEN/PELVIS W INDICATIONS: interval eval abscess CONTRAST: 100ml omni 300 TECHNIQUE: After the administration of IV contrast, 5 mm thick sections acquired from the diaphragms to the symp hysis. 5 mm thick coronal and sagittal reformats were acquired. For radiation dose reduction, the f ollowing was used: automated exposure control, adjustment of mA and/or kV according to patient size. COMPARISON: 08/27/2023 FINDINGS: Image quality: Good Lower chest: Separately dictated Solid organs: Multiloculated fluid with surrounding edema in the inferior portion on the right lobe, measuring 7 x 5 x 7 cm, previously 6 x 3.4 x 6 cm. Gallbladder is unremarkable. There is pericholecystic fluid without distention, nonspecific. No patho logic dilation of the biliary system or pancreatic duct. Prominent jonathan hepatis lymph nodes may be r eactive in this clinical setting. Spleen measures about 13 to 14 cm, the upper limit of normal. No ad renal nodules. No hydronephrosis. Vessels and lymph nodes: No pathologic lymphadenopathy by size criteria or abdominal aortic aneurysm. Bowel and peritoneum: Small hiatal hernia. No evidence of small bowel obstruction or drainable intrap eritoneal abscess. There are colonic diverticula. Nondilated appendix Body wall: Tiny fat-containing umbilical hernia. Pelvis: Small inguinal hernia on the left. Bladder is unremarkable. Prostate is not well evaluated on CT. Bones: No acute or suspicious osseous finding. Degenerative changes are present. L1 height loss again seen. IMPRESSION: Slightly increased size of hypoattenuating region in the inferior right lobe of the liver.. In the se tting of fever, this is suspicious for abscess. Contents appear mostly liquid. Surveillance imaging also recommended to assess for resolution and any underlying solid portion follo wing treatment. Other findings as above. Reviewed by: Cr Leyva MD on 08/30/2023 1:04 PM PST Approved by: Cr Leyva MD on 08/30/2023 1:04 PM PST Station ID: [id number]
[2023-08-30] MEDS: iohexoL-300 100 ML VIAL IVP ONE (15:14)
[2023-08-30] MEDS: ACETAMINOPHEN 325 MG TABLET PO PRN ×2 (17:30→21:30)
--- NOTE | 2023-08-30 17:47 | ED Physician Documentation ---
ED Addendum - Addendum Addendum: 08/30/23 17:44 As per prior note, the concern was whether the patient was having increased size or more consolidation of the apparent abscess area. We did repeat the CT scan that included chest as well as abdomen. The area of multiloculated fluid in the liver area appeared a little bit more well-defined at the edges but still multiloculated. It had increased in size by a centimeter in each direction. He is still having fevers intermittently. I had the images pushed to and they are going to review them and discuss with surgery/interventional radiology again to see if it now seems more amenable to drainage. At this point we are awaiting their call back. Were also expanding this hospital search to other facilities as well. At this point we do not have surgical coverage today or over the weekend and this seems likely little more complicated than our facility surgical service would be comfortable with and more extended than our critical access hospital should undertake.
[2023-08-30] MEDS ORDERED: ONDANSETRON 4 MG/2 ML VIAL IVP PRN (19:12)
[2023-08-30] MEDS ORDERED: ACETAMINOPHEN 500 MG TABLET PO PRN (19:12)
[2023-08-30 19:52] LABS: BASOPHILS % (AUTO) 0.3 %; EOSINOPHILS # (AUTO) 0.2 10^3/uL (0.0-0.7); EOSINOPHILS % (AUTO) 1.6 %; HCT - HEMATOCRIT 33.7 % (42.0-52.0); HGB - HEMOGLOBIN 11.8 g/dL (14.0-18.0); LYMPHOCYTES # (AUTO) 1.3 10^3/uL (1.5-3.5); MEAN CORPUSCULAR VOLUME 91.3 fL (80.0-94.0); MEAN PLATELET VOLUME 10.1 fL (7.4-11.4); MONOCYTES # (AUTO) 0.9 10^3/uL (0.0-1.0); MONOCYTES % (AUTO) 9.3 %; NEUTROPHILS # (AUTO) 7.6 10^3/uL (1.5-6.6); NEUTROPHILS % (AUTO) 75.1 %; PLT - PLATELET COUNT 226 10^3/uL (130-450); RED BLOOD COUNT 3.69 10^6/uL (4.70-6.10); RED CELL DISTRIBUTION WIDTH 12.4 % (12.0-15.0); WHITE BLOOD COUNT 10.2 x10^3/uL (4.8-10.8)
[2023-08-30 20:00] LABS: ALBUMIN 3.2 g/dL (3.2-5.5); ALBUMIN/GLOBULIN RATIO 0.9 (1.0-2.2); BILIRUBIN,TOTAL 0.5 mg/dL (0.2-1.0); CALCIUM 8.2 mg/dL (8.5-10.3); CREATININE 0.8 mg/dL (0.6-1.3); TOTAL PROTEIN 6.9 g/dL (6.4-8.9)
--- NOTE | 2023-08-30 20:06 | ED Physician Documentation ---
ED Addendum - Addendum Addendum: No changes during my shift, patient updated. Continuing to await placement.Patient signed out to the oncoming emergency department physician at shift change.
[2023-08-30] MEDS ORDERED: POTASSIUM CHLOR 10 MEQ/100 ML 10 MEQ/100 ML BAG IV STA (22:33)
--- NOTE | 2023-08-30 23:23 | ED Physician Documentation ---
ED Addendum - Addendum Addendum: 08/30/23 23:22 d/w Dr. Noel, [facility] hospitalist for transfer for possible IR intervention for hepatic abscess. she accepts in transfer. 08/30/23 23:27 Disposition transfer Condition stable Impression 1. fever 2. hepatic abscess
[2023-08-30] MEDS ORDERED: SODIUM CHLORIDE 0.9% 1,000 ML IV SCH (23:45)
[2023-08-31] MEDS ORDERED: VANCOMYCIN 1 GM VIAL ONE (00:41)
[2023-08-31] MEDS ORDERED: POTASSIUM CHLOR 10 MEQ/100 ML 10 MEQ/100 ML BAG IV STA (00:42)
[2023-08-31] MEDS: POTASSIUM CHLOR 10 MEQ/100 ML 10 MEQ/100 ML BAG IV SCH ×3 (01:08→03:13)
[2023-08-31] MEDS: VANCOMYCIN INJ 1 GM, VANCOMYCIN INJ 500 MG in SODIUM CHLORIDE 0.9% 500 ML IV SCH (01:09)
[2023-08-31 02:33] VITALS: BP 98/78; O2SAT 97
[2023-08-31] MEDS: ACETAMINOPHEN 325 MG TABLET PO PRN (03:13)
[2023-08-31] MEDS ORDERED: PANTOPRAZOLE 40 MG TABLET PO SCH (07:00)
== END 2023-08-31 03:14 | disposition short-term general hospital (02) ==
LOC: EDUNIT# → ED 19:00
DX: A41.9 Sepsis, unspecified organism (principal); K75.0 Abscess of liver; R65.20 Severe sepsis without septic shock; I95.9 Hypotension, unspecified; E87.6 Hypokalemia; Z20.822 Contact with and (suspected) exposure to COVID-19; Z75.1 Person awaiting admission to adequate facility elsewhere
CPT/HCPCS: 36415; 71046; 71260; 74177; 80053; 80202; 81001; 83605; 85025; 85651; 86140; 87040; 87086; 87633; 96365; 96366; 96367; 96368; 96375; 96376; 99285; A9270; J3370; Q9967

== ENCOUNTER 2023-08-31 03:16 | Outpatient (CLI) | payer OTHER | END 2023-08-31 03:17 | disposition short-term general hospital (02) | LOC: EMS 03:16 | PROVIDERS: ATTEND Emergency Medicine | DX: K75.0 Abscess of liver (principal) | CPT/HCPCS: A0425; A0426 ==